=== PATIENT | male | born 1975 | race Caucasian/White ===

== ENCOUNTER 2021-07-13 19:19 | Emergency (ER) | payer BC, SELFPAY ==
--- NOTE | ~2021-07-13 | XR_ITS ---
EXAMINATION: PORTABLE CHEST 1 VIEW CLINICAL INFORMATION: Covid, increasing cough . COMPARISON: 09/02/2017. TECHNIQUE: Portable frontal view of the chest was obtained. FINDINGS: Dense calcified left pleural plaque is again seen with a distribution similar to the prior study. This associated volume loss in the left with blunting of the left costophrenic angle and asymmetric left pleural capping. On these extensive chronic changes I do not appreciate any acute superimposed focal infiltrate, effusion, edema, or pneumothorax. Cardiac and mediastinal silhouettes within normal limits for size. No acute bony abnormality. XR/XR chest 1V IMPRESSION: Extensive chronic appearing changes in the left hemithorax similar to the 2018 study. No acute superimposed process.
[2021-07-13 19:55] VITALS: BP 119/73; PULSE 74; RESP 18; TEMP 36.1; O2SAT 97; BMI 26.5
[2021-07-13 23:44] VITALS: BP 110/77; PULSE 68; RESP 16; TEMP 36.1; O2SAT 100
--- NOTE | 2021-07-14 00:22 | ED_ITS ---
HPI - URI/Sore Throat General Chief Complaint: Upper Respiratory Symptoms Stated Complaint: covid + Time Seen by Provider: 07/14/21 00:01 Source: patient Mode of arrival: ambulatory Limitations: no limitations History of Present Illness HPI Narrative: Patient presents to the emergency department for evaluation of shortness of breath is associated with tightness in the chest. Reports 6 days ago developing upper respiratory symptoms, and had tested positive for COVID-19. Reports that he has had been vaccinated for COVID-19 with Moderna x3. Since earlier this morning he felt his shortness of breath was becoming slightly worse with wheezing, and tightness in the chest. When at rest, or 1 not coughing he denies any pain/tightness to the chest. Denies fevers, chills, nasal congestion, sore throat, neck pain, palpitations, nausea, vomiting, abdominal pain, generalized body aches, generalized weakness. He reports that he has been using his albuterol inhaler which has helped with his symptoms. He states he has history of COPD and was concerned that he may be developing pneumonia. Related Data Home Medications Medication Instructions Recorded Confirmed albuterol sulfate 90 mcg/actuation 1 puff INHALATION QID 04/02/21 04/02/21 aerosol inhaler (ProAir HFA) Previous Rx's Medication Instructions Recorded amoxicillin 875 mg-potassium 1 tab PO BID 7 Days #14 tab 06/11/21 clavulanate 125 mg tablet codeine 6.3 mg-guaifenesin 100 10 ml PO Q4-6H PRN #473 ml 06/11/21 mg/5 mL oral liquid albuterol sulfate 90 mcg/actuation 2 puff INHALATION Q4-6H PRN #6.7 g 07/14/21 aerosol inhaler (ProAir HFA) prednisone 20 mg tablet 40 mg PO DAILY 5 Days #10 tab 07/14/21 Allergies Allergy/AdvReac Type Severity Reaction Status Date / Time No Known Allergies Allergy Verified 06/11/21 10:18 Review of Systems Review of Systems: Constitutional: No fever. No chills. No weakness. No fatigue. ENT/ Mouth: No Ear Pain, positive Nasal Congestion, no sore throat, No Rhinorrhea, No Swallowing Difficulty Skin: No rash or itching. Cardiovascular: Positive chest tightness. No palpitations. Respiratory: Positive shortness of breath. Positive cough. No sputum production. Gastrointestinal: No nausea. No vomiting. No diarrhea. No abdominal pain. Genitourinary: No burning micturition. No urinary frequency. Neurologic: No headache. No dizziness. No syncope. No numbness or tingling in the extremities. Musculoskeletal: No muscle pain. No back pain. No joint pain or stiffness. Yes all other systems are reviewed and are negative PMFSH Past Medical History Attestation statement: The following information was validated with the patient. Source: old records reviewed Social History Social History Advance Directives: No Physical Exam Vital Signs: Vital Signs: Last Vital Signs Temp 97 F 07/13/21 23:44 Pulse 68 07/13/21 23:44 Resp 16 07/13/21 23:44 BP 110/77 07/13/21 23:44 Pulse Ox 100 07/13/21 23:44 BMI result Body Mass Index 26.5 Vital signs have been reviewed as normal and appeared to be correct. Blood pressure normal.? Heart rate normal.? Respiration rate normal. Temperature norm al.? Oxygen saturation normal. Appearance: Alert.?Oriented to person, place and time. No acute distress.?Normal affect. Eyes: Pupils equal, round and reactive to light.? ENT: TM normal bilaterally. Pharynx normal.?? Neck: Normal inspection.? Neck supple.??No cervical adenopathy CVS: Heart sounds normal. Normal heart rate and rhythm.? Pulses normal.?? Respiratory: No respiratory distress.? Lung sounds with inspiratory and expiratory wheezing bilaterally Abdomen: Soft and non-tender. Skin: Skin warm and dry.? Normal skin color.? ? Extremities: No lower extremity edema.? Neuro: Moves all extremities spontaneously. Sensation intact bilaterally. No motor deficits. Ambulates with normal steady gait. Course Course Course Narrative: Patient is a 46-year-old male with reported past medical history of COPD, presenting for evaluation of shortness of breath and chest tightness, in the setting of recent COVID-19 infection per his report. Patient noted to have significant inspiratory and expiratory wheezing on exam, offered patient received nebulizer treatment while in the emergency department he however declines. Discussed recommendation to obtain basic labs to exclude alternative causes for chest tightness such as anemia, ACS, PE, however patient declines having blood work obtained. Reports that this feels typical for him with his COPD which is slightly worse than normal. Chest x-ray reveals no acute consolidation, infiltrate, or pulmonary congestion. Patient with no risk factors for ACS. Chest tightness is reproducible with cough and deep inspiration. Ambulatory O2 trial reveals no hypoxia or tachycardia. He is overall well-appearing, nontoxic, afebrile, no tachycardia or tachypnea/hypoxia. Speaking clear full sentences, ambulatory with steady gait. Discussed conservative treatment including rest, hydration, Tylenol/ibuprofen as needed for fever and body aches, provided with a new prescription for albuterol inhaler, in addition to prednisone to take daily. Discussed opportunities for monoclonal antibody infusion given his reported history of COPD, he however declines. Advised to follow-up with primary care provider as needed, discussed reasons to return back to the emergency department for any new or worsening symptoms or concerns All questions were answered. Patient discharged home in stable condition. MDM - URI/Sore Throat Medical Records Attestation: I reviewed the patient's medical records. Lab Data Attestation: I reviewed the patient's lab results. Imaging Data Chest x-ray: Radiologist's impression: XR/XR chest 1V IMPRESSION: Extensive chronic appearing changes in the left hemithorax similar to the 2018 study. No acute superimposed process. ? Discharge Plan Discharge Clinical Impression: COVID-19 Patient Disposition: Home, Self-Care Instructions: COVID-19 (Coronavirus Disease 2019) (ED) Additional Instructions: You made us aware that you have tested positive for COVID-19, this is likely causing you to have an exacerbation of your COPD as he reported. You have been given a new prescription for your albuterol inhaler, sent to your pharmacy in addition to an oral steroid, prednisone. As we discussed, please return to emergency department with any new symptoms or concerns or worsening shortness of breath, difficulty breathing, wheezing, or few developed chest pain lightheadedness, dizziness, confusion. Please follow-up with your primary care provider within 1 week. Prescriptions: New albuterol sulfate [ProAir HFA] 90 mcg/actuation HFA aerosol inhaler 2 puff inhalation Q4-6H PRN (Reason: shortness of breath or wheezing) Qty: 6.7 0RF prednisone 20 mg tablet 40 mg PO DAILY 5 Days Qty: 10 0RF No Action albuterol sulfate [ProAir HFA] 90 mcg/actuation HFA aerosol inhaler 1 puff inhalation QID 0RF amoxicillin-pot clavulanate 875-125 mg tablet 1 tab PO BID 7 Days Qty: 14 0RF codeine-guaifenesin 6.3-100 mg/5 mL liquid 10 ml PO Q4-6H PRN (Reason: allergy symptoms) Qty: 473 0RF Stand Alone Forms: Work/School Release Interventions: ED Discharge Assessment Last Done: 07/14/21 01:13 Discharge Date/Time: 07/14/21 01:14
== END 2021-07-14 01:14 | disposition home or self-care (01) ==
LOC: HO.ED 07-14 00:50
PROVIDERS: Emergency Provider Internal Medicine; PCP Nurse Practitioner Family
DX: U07.1 COVID-19 (principal); R07.89 Other chest pain; Z79.899 Other long term (current) drug therapy
CPT/HCPCS: 71045; 99283

== ENCOUNTER 2021-12-28 08:32 | Outpatient (REF) | payer BC, SELFPAY ==
[2021-12-28 12:02] LABS: Appearance Urine Clear; Color Urine Dark Yellow; Glucose Urine UA Negative (Negative); Leukocyte Esterase Urine Negative (Negative); Nitrite Urine Negative (Negative); Urine Blood Negative (Negative); Urine Ketones Trace mg/dL (Negative); Urine Protein Negative (Neg-Trace)
[2021-12-28 12:04] LABS: Basophils Absolute Auto 0.1 X10*3/uL (0.0-0.2); Basophils Percent Auto 0.6 % (0-2); Eosinophils Absolute Auto 0.1 X10*3/uL (0.0-0.4); Eosinophils Percent Auto 1.2 % (0-4); Hematocrit 47.2 % (42.0-52.0); Hemoglobin 15.4 g/dl (14.0-18.0); Imm Gran Abs Auto 0.05 X10*3/uL (0.00-0.03); Imm Gran Pct Auto 0.5 % (0.0-0.4); Lymphocytes Absolute Auto 2.4 X10*3/uL (1.2-4.9); Lymphocytes Percent Auto 22.4 % (20-40); MANUAL DIFF FLAG NO; Mean Corpuscular HGB Conc 32.6 g/dl (31.0-36.0); Mean Corpuscular Hemoglobin 30.1 pg (27.0-33.0); Mean Corpuscular Volume 92.4 fL (80.0-98.0); Mean Platelet Volume 11.3 fL (9.4-12.4); Monocytes Absolute Auto 1.1 X10*3/uL (0.1-1.2); Monocytes Percent Auto 10.4 % (2-11); Neutrophils Percent Auto 64.9 % (45-73); Platelet Count 301 X10*3/uL (160-400); Red Blood Count 5.11 X10*6/uL (4.60-5.80); Red Cell Distribution Width 12.2 % (11.0-16.0); White Blood Count 10.9 X10*3/uL (4.8-10.8)
[2021-12-28 12:26] LABS: Alanine Aminotransferase 20 U/L (0-40); Albumin Level 4.5 g/dL (3.5-5.0); Alkaline Phosphatase 92 U/L (39-117); Anion Gap 17 (12-20); Aspartate Amino Transferase 22 U/L (5-37); Bilirubin Total 0.3 mg/dL (0.0-1.0); Blood Urea Nitrogen 12 mg/dL (9-16); Calcium 9.7 mg/dL (8.4-10.2); Carbon Dioxide 26 mmol/L (22-29); Chloride 104 mmol/L (96-108); Cholesterol 195 mg/dL; Estimated Glomerular Filt Rate > 60; Glucose Fasting 88 mg/dL (60-99); HDL Cholesterol 43 mg/dL; LDL Cholesterol Calculated 137 mg/dl; Potassium 4.5 mmol/L (3.3-5.1); Sodium 142 mmol/L (135-145); Total Protein 7.4 g/dL (6.5-8.0); Triglycerides 78 mg/dL
[2021-12-28 12:50] LABS: TSH reflex Free T4 1.22 uIU/mL (0.32-4.0)
== END 2021-12-28 08:33 | disposition home or self-care (01) ==
LOC: HO.HMGCLDS 08:32
PROVIDERS: PCP Nurse Practitioner Family; Visit Provider Nurse Practitioner Family
DX: Z00.00 Encounter for general adult medical examination without abnormal findings (principal)
CPT/HCPCS: 36415; 80053; 80061; 81003; 84443; 85025

== ENCOUNTER 2022-04-19 14:46 | Outpatient (REF) | payer BC, SELFPAY ==
--- NOTE | ~2022-04-19 | XR_ITS ---
EXAMINATION: XR ELBOW, RIGHT CLINICAL INFORMATION: Right elbow pain COMPARISON: None TECHNIQUE: AP, lateral, and oblique views of the right elbow. FINDINGS: The bones and soft tissues are normal. No fracture or joint effusion. Alignment is anatomic. Joint spaces are maintained. XR/XR elbow RT min 3V IMPRESSION: Normal right elbow.
== END 2022-04-19 14:47 | disposition home or self-care (01) ==
LOC: HO.HMGCX 14:46
PROVIDERS: PCP Nurse Practitioner Family; Visit Provider Nurse Practitioner Family
DX: M25.521 Pain in right elbow (principal)
CPT/HCPCS: 73080

== ENCOUNTER 2023-04-27 08:07 | Outpatient (AMB) | payer BC, SELFPAY ==
[2023-04-27 08:09] VITALS: BP 126/78; PULSE 96; TEMP 36.6; O2SAT 96; BMI 28.3
--- NOTE | 2023-04-27 08:09 | MHC.OFFWIV ---
Intake Vital Signs 04/27/23 08:09 Height 5 ft 10 in Weight 197 lb 2 oz BMI 28.3 BP 126/78 Blood Pressure Location Lt brachial Position Sitting Pulse 96 Pulse Source Pulse Oximeter Temp 98 F Temp Source Oral Pulse Oximetry (%) 96 Oxygen Delivery Method Room Air Intake Visit Reasons: EP sinus pain Intake Note: Pt is here today for sinus pain eyes ears. Pt states symptoms been going on for a month Patient Tobacco Use Status: Current someday Tobacco user Allergies No Known Allergies Allergy (Verified 06/27/22 12:34) HPI HPI Comments History of Present Illness Details 47 y/o male patient who presents to walk in clinic with c/o Sinus pressure for over a month. H/o well controlled Asthma on Albuterol inhaler. Denies any recent sick contacts. Denies fevers, chills, nausea or vomiting. 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[place] [id number] Current occupational exposures/hazards: Yes Cognitive needs: No Hearing needs: No Vision needs: No Review of Systems Const All systems reviewed & are unremarkable except as noted in HPI and below Physical Exam Vital Signs: Last Vital Signs Temp 98 F 04/27/23 08:09 Pulse 96 04/27/23 08:09 BP 126/78 04/27/23 08:09 Pulse Ox 96 04/27/23 08:09 Oxygen Delivery Method Room Air 04/27/23 08:09 BMI result Body Mass Index 28.3 Const General: comfortable and no acute distress Nutritional Appearance: well nourished Orientation/consciousness: patient oriented x3 HEENT Head: Yes normocephalic Ears: external ears normal and TM's normal bilaterally General nose exam: Normal nasal mucous membranes and turbinates present Face and sinus: Yes sinuses nontender Throat: Yes posterior oropharynx normal Resp Effort & Inspection: normal respiratory effort, able to speak in complete sentences and no cough Auscultation: clear to auscultation bilaterally, no crackles, no rales, no rhonchi and no wheezes Neuro General: patient oriented x3 Assessment & Plan Assessment & Plan (1) Acute nasopharyngitis (common cold): Code(s): J00 - Acute nasopharyngitis [common cold] Plan: - OTC cold/sinus remedies -Rest and hydrate well - Acetaminophen for pain relief Medications: New azithromycin 500 mg PO DAILY 3 days 3 tabs 0RF J00 - Acute nasopharyngitis [common cold] oxymetazoline 0.05% (Afrin (oxymetazoline)) 2 sprays intranasal Q12H 3 days PRN 15 mL 0RF nasal congestion J00 - Acute nasopharyngitis [common cold] Coding Level of Care Code Est Pt Level 3 (19727) Diagnoses Acute nasopharyngitis (common cold) J00 Time Spent (min) 15
== END 2023-04-27 09:31 | disposition home or self-care (01) ==
PROVIDERS: PCP Nurse Practitioner Family; Visit Provider Nurse Practitioner Family
DX: J00 Acute nasopharyngitis [common cold] (principal)
CPT/HCPCS: 99213

== ENCOUNTER 2023-07-31 09:59 | Outpatient (AMB) | payer BC, SELFPAY ==
[2023-07-31 10:38] VITALS: BP 128/80; PULSE 82; TEMP 36.8; O2SAT 98; BMI 26.0
--- NOTE | 2023-07-31 10:38 | MHC.OFFWIV ---
Intake Vital Signs 07/31/23 10:38 Height 5 ft 10 in Weight 181 lb BMI 26.0 BP 128/80 Blood Pressure Location Rt brachial Position Sitting Pulse 82 Pulse Source Pulse Oximeter Temp 98.3 F Temp Source Oral Pulse Oximetry (%) 98 Oxygen Delivery Method Room Air Intake Visit Reasons: EP sinus/chest congestion night sweats Intake Note: pt is here for sinus and chest congestion with night sweats.tested pos for covid last week Patient Tobacco Use Status: Current someday Tobacco user Allergies No Known Allergies Allergy (Verified 07/31/23 10:42) Do you need a note to return to daycare/school/sports/work: No HPI HPI Comments History of Present Illness Details This is a 48-year-old male with past medical history of asthma presenting for evaluation of a cough and chest congestion. Patient states that he tested positive for COVID on July 26 after feeling significant fatigue with a headache 2 days prior. Patient states that his cough persists however he denies having any fevers, chills, chest pain or overt shortness of breath. 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[place] [address] Current occupational exposures/hazards: Yes Cognitive needs: No Hearing needs: No Vision needs: No Review of Systems Const All systems reviewed & are unremarkable except as noted in HPI and below Reports no additional complaints, Reports body aches, Denies chills, Reports fatigue, Denies fever(s) and Reports headache(s) Eyes Reports no additional complaints ENT Reports no additional complaints and Reports headache(s) Card Reports no additional complaints Resp Reports chest congestion and Reports cough GI Reports no additional complaints Reports no additional complaints Musc Reports no additional complaints Neuro Reports no additional complaints and Reports headache(s) Endo Reports no additional complaints and Reports fatigue Aller/Immun Reports no additional complaints Physical Exam Vital Signs: Last Vital Signs Temp 98.3 F 07/31/23 10:38 Pulse 82 07/31/23 10:38 BP 128/80 07/31/23 10:38 Pulse Ox 98 07/31/23 10:38 Oxygen Delivery Method Room Air 07/31/23 10:38 BMI result Body Mass Index 26.0 Patient is afebrile. Const General: cooperative, comfortable, no acute distress, alert and awake Nutritional Appearance: average body habitus Orientation/consciousness: patient oriented x3 Limitations: no limitations HEENT Head: Yes normal to inspection Ears: hearing grossly normal bilaterally, external ears normal, TM's normal bilaterally and EAC's normal General nose exam: Normal external nose present Face and sinus: Yes normal facial exam and Yes sinuses nontender Mouth: Normal oral and palatal mucosa present and moist mucous membranes Teeth and gingiva: dentition normal Throat: Yes posterior oropharynx normal and Yes postnasal drainage Eyes General: appearance normal, both eyes and all related structures Neck Lymphatic: no lymphadenopathy noted Resp Effort & Inspection: normal respiratory effort, able to speak in complete sentences, no audible wheezes, no cough, no nasal flaring and no respiratory distress Auscultation: clear to auscultation bilaterally Cardio Rate: regular rate Rhythm: regular rhythm Skin General skin exam: no rashes or lesions noted Neuro General: patient oriented x3 Psych Appearance: grossly normal Mental Status: mental status grossly normal Insight: Good insight present (Psych) Judgement: Good judgement present (Psych) Assessment & Plan Assessment & Plan (1) Acute upper respiratory infection: Comment: Given this patient's history of asthma his albuterol inhaler will be refilled however pathology has been explained to the patient as related to COVID vs. asthma Code(s): J06.9 - Acute upper respiratory infection, unspecified Plan: Supportive measures. Tylenol or ibuprofen for any discomfort. Patient to stay well hydrated. Work note provided. Medications: New albuterol sulfate 90 mcg/actuation 2 puffs inhalation Q6H PRN 8.5 grams 0RF shortness of breath or wheezing Coding Level of Care Code New Pt Level 3 (41478) Diagnoses Acute upper respiratory infection J06.9 Time Spent (min) 25
== END 2023-07-31 11:03 | disposition home or self-care (01) ==
PROVIDERS: PCP Nurse Practitioner Family; Visit Provider Physician Assistant
DX: J06.9 Acute upper respiratory infection, unspecified (principal)
CPT/HCPCS: 99203

== ENCOUNTER 2024-12-25 15:09 | Outpatient (AMB) | payer BC, SELFPAY ==
[2024-12-25 15:13] VITALS: BP 110/62; PULSE 94; RESP 14; O2SAT 97; BMI 27.1
--- NOTE | 2024-12-25 15:13 | MHC.PC.OV ---
Vital Signs 12/25/24 15:13 Height 5 ft 10 in Weight 189 lb BMI 27.1 BP 110/62 Blood Pressure Location Lt brachial Position Sitting Respiration 14 Pulse 94 Pulse Source Pulse Oximeter Pulse Oximetry (%) 97 Oxygen Delivery Method Room Air Intake Visit Reasons: PE w/ labs Interface Analyst Required: No Accompanied by: Self / Same As Patient Allergies No Known Allergies Allergy (Verified 12/25/24 15:15) Medication List - Last Reconciled 12/25/24 by XAVIER Pittman albuterol sulfate 90 mcg/actuation (ProAir HFA) 1 puff inhalation QID albuterol sulfate 90 mcg/actuation 2 puffs inhalation Q6H PRN clonazepam 0.5 mg PO BEDTIME PRN oxymetazoline 0.05% (Afrin (oxymetazoline)) 2 sprays intranasal Q12H PRN 3 days paroxetine HCl 60 mg PO BEDTIME Tobacco use date assessed: 12/25/24 Dental Screening Dental Screen Date: 12/25/24 Did you have a dental visit in the last 12 months?: Yes Did you have a dental problem in the last 6 months where you did not have access to dental care?: No Was dental information given to patient?: Patient has dentist HPI PE w/ labs HPI Details History of Present Illness The patient is a 49-year-old male presenting for a physical exam. He denies chest pain, shortness of breath, abdominal pain, hematochezia, constipation, and diarrhea. Approximately three months ago, the patient developed severe left neck pain and was seen at an urgent care, where he was treated for a muscle strain. He reports the pain is improving, encouraged the use of heat and stretching, and he denies any radicular symptoms into the bilateral upper extremities. Past history includes tobacco use. He sees a therapist regularly and denies suicidal or homicidal ideation. Health Maintenance A referral will be placed for a colonoscopy as the patient is due for screening. A referral for a low-dose CT scan will also be made for lung cancer screening due to his history of smoking. Vaccinations were discussed, and the patient was informed he can get them at his pharmacy. Social History - Substance Use: The patient has a history of smoking. - Mental Health: He sees a therapist regularly. Review of Systems - Cardiovascular: Denies chest pain. - Respiratory: Denies shortness of breath. - Gastrointestinal: Denies abdominal pain, hematochezia, constipation, and diarrhea. - Musculoskeletal: Reports left neck pain that is improving. - Neurological: Denies radicular symptoms. - Psychiatric: Denies suicidal or homicidal ideation. Physical Exam General: Cooperative, healthy appearing, comfortable, no acute distress and well developed Orientation: Patient oriented x3 Limitations: No limitations Head: Normal to inspection Ears: Hearing grossly normal bilaterally Nose: Normal external nose present Face and sinus: Normal facial exam Eyes: Appearance normal, both eyes and all related structures Neck: Normal visual inspection and Yes full ROM, neg spurlings Respiratory: Normal respiratory effort and able to speak in complete sentences. Clear to auscultation bilaterally Cardiovascular: Regular rate and rhythm. Normal S1 and S2 GI: Normal to inspection. Soft to palpation and nontender : testicles without masses/lesions and no hernias appreciated Skin: No rashes or lesions noted Neuro: Patient oriented x3 Extremities: Normal to inspection, no radicular symptoms down bilaterally upper extremities Results Plan 1. Left Neck Pain The patient reports his left neck pain, which was diagnosed as a muscle strain three months ago, is improving. He will continue with heat application and stretching. He was advised to follow up if his symptoms worsen. Discussion Notes I reviewed the patient's preventative health needs. Due to his history of smoking, I informed him he qualifies for a low-dose CT scan for lung cancer screening and that I will place a referral. I also noted he is due for a colonoscopy and will refer him for that as well. We went over the vaccinations he is due for, and I advised him he can receive them at his pharmacy. Regarding his resolving left neck pain, I recommended he continue with heat and stretching and to let me know if it worsens. Patient Instructions - Continue to use heat and stretching for your left neck pain. - Please let us know if your neck pain gets any worse. - We will put in a referral for you to get a low-dose CT scan of your chest to screen for lung cancer. - We will also put in a referral for you to get a colonoscopy for colon cancer screening. - You can get the vaccinations you are due for at your local pharmacy. 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 1. Little interest or pleasure in doing things: several days 2. Feeling down, depressed, or hopeless: several days 3. Trouble falling or staying asleep, or sleeping too much: several days 4. Feeling tired or having little energy: several days 5. Poor appetite or overeating: not at all 6. Feeling bad about yourself - or that you are a failure or have let yourself or your family down: several days 7. Trouble concentrating on things, such as reading the newspaper or watching television: nearly every day 8. Moving or speaking so slowly that other people could have noticed. Or the opposite - being so fidgety or restless that you have been moving around a lot more than usual: several days 9. Thoughts that you would be better off or of hurting yourself in some way: not at all Total score: 9 Depression Screening Interpretation: Positive (denies any SI or hi, has a therapist) Depression Screening Follow-up: Existing condition and In treatment Depression Screening Done: Yes 86008 - PHQ-9 Billing: Yes Source: Developed by Drs. Alejandro Murcia, Hali Fishman, Pollo Healy and colleagues, with an educational nandini from [employer]. Thrive Questionnaire Date Thrive assessed: 12/28/21 I am a: Patient What is your living situation today?: I have a steady place to live Within the past 12 months, did the food you bought not last and you didn't have the money to get more?: Never true Within the past 12 months, did you worry whether your food would run out before you got money to buy more?: Never true Do you have trouble paying for medicines?: No Do you have trouble getting transportation to medical appointments?: No Do you have trouble paying your heating and electricity bill?: No Do you have trouble taking care of your child, family member or friend?: No Do you have trouble with day-to-day activities such as bathing, preparing meals, shopping, managing finances, etc.?: No Are you currently unemployed and looking for a job?: No Are you interested in more education?: No Please select the resources that you would like help with: None Currently or been in a relationship where the following occur: No concerns reported THRIVE Score: 0 AUDIT C Alcohol Use Questionnaire (AUDIT-C) 1. How often do you have a drink containing alcohol?: Never Total Score: 0 ORALIA-7 AMB Questionnaire ORALIA-7 Date ORALIA - 7 assessed: 12/25/24 Feeling nervous, anxious, or on edge: 1 = Several days Not being able to stop or control worryin = Several days Worrying too much about different things: 1 = Several days Trouble relaxin = Several days Being so restless that it is hard to sit still: 1 = Several days Becoming easily annoyed or irritable: 1 = Several days Feeling afraid as if something awful might happen: 1 = Several days Total ORALIA-7 score (0-4 normal; 5-9 mild; 10-14 moderate; 15-21 severe): 7 Source: Developed by Drs. Alejandro Murcia, Hali Fishman, Pollo Healy and colleagues, with an educational nandini from [employer]. ORALIA-7 Assessment Billing ORALIA-7 Assessment Tool: ORALIA-7 Assessment 94379 Physical exam (Primary Care) Vital Signs: Last Vital Signs Pulse 94 12/25/24 15:13 Resp 14 12/25/24 15:13 BP 110/62 12/25/24 15:13 Pulse Ox 97 12/25/24 15:13 Oxygen Delivery Method Room Air 12/25/24 15:13 BMI result Body Mass Index 27.1 Tobacco/Smoking Status: Tobacco use Status Tobacco use date assessed 12/25/24 12/25/24 15:17 Patient Tobacco Use Status Former Tobacco user 12/25/24 15:17 Tobacco use type Cigarette 12/25/24 15:17 e-Cigarette/Vaping Use Never Used 12/25/24 15:17 PHQ-9: PHQ-9 Score PHQ-9: Total score 9 12/25/24 15:17 Depression Screening Interpretation: Positive (denies any SI or hi, has a therapist) Depression Screening Follow-up: Existing condition and In treatment Thrive Assessment: Date of Thrive Assessment Date Thrive assessed 12/28/21 12/25/24 15:17 Currently or been in a relationship where the following occur: No concerns reported Coding Level of Care Code Est Pt Prev Care 40-64y(78473) Diagnoses Physical exam Z00. Screening for prostate cancer Z12.5 Screen for colon cancer Z12.11 Smoker F17.200 Additional Codes ORALIA-7 Assessment Billing - ORALIA-7 Assessment Tool: ORALIA-7 Assessment 55867 ([id number]) PHQ-9 - 31752 - PHQ-9 Billing: Yes ([id number]) Assessment & Plan Assessment & Plan (1) Physical exam: Code(s): Z00.00 - Encounter for general adult medical examination without abnormal findings Category: Medical (2) Screening for prostate cancer: Code(s): Z12.5 - Encounter for screening for malignant neoplasm of prostate Category: Medical (3) Screen for colon cancer: Code(s): Z12.11 - Encounter for screening for malignant neoplasm of colon Category: Medical (4) Smoker: Code(s): F17.200 - Nicotine dependence, unspecified, uncomplicated Category: Social Hx Plan . Orders: Orders Comprehensive [place]. Panel Fast Today Z00.00 - Encounter for general adult medical examination without abnormal findings Lipid Panel Today Z00.00 - Encounter for general adult medical examination without abnormal findings Complete Blood Count Auto Diff Today Z00.00 - Encounter for general adult medical examination without abnormal findings TSH reflex Free T4 Today Z00.00 - Encounter for general adult medical examination without abnormal findings UA CC w/rflx Micro + Cult Today Z00.00 - Encounter for general adult medical examination without abnormal findings Prostate Specific Antigen Scr Today Z12.5 - Encounter for screening for malignant neoplasm of prostate Referrals Gastroenterology Referral Z12.11 - Encounter for screening for malignant neoplasm of colon Lung Cancer Screening Referral F17.200 - Nicotine dependence, unspecified, uncomplicated
--- OUTSIDE RECORDS SUMMARY | 2024-12-25 17:56 | XMS_ITS | Clinical Summary ---
Author Organization [facility] Address [address] [place] [phone] Phone Care Team Providers Care Optical Store Manager Name Role Phone Epi Reich ASSISTANT SOFTBALL COACH Primary Care Provider + Allergies Active Allergy Reactions Criticality Noted Date Comments Levofloxacin Low 07/17/2012 Redness in the face - anxiety-like symptoms Medications No known medications Active Problems No known active problems Social History Tobacco Use Types Packs/Day Years Used Date Smoking Tobacco: Never Smokeless Tobacco: Never Alcohol Use Standard Drinks/Week Comments Not Currently 0 (1 standard drink = 0.6 oz pur e alcohol) Education Answer Date Recorded Are you interested in more education? Not on dat e 06/23/2022 Are you concerned about learning? Not on file 06/23/2022 No 06/23/2022 No 06/23/2022 Digital Access Answer Date Recorded No 07/21/2022 No 07/21/2022 Reliable internet access at home? Not on file 07/21/2022 Device with a working camera? Not on file Sex and Gender Information Value Date Recorded Sex Assigned at Not on file Legal Sex Male 9:29 PM EDT Gender Identity Not on file Sexual Orientation Not on file Last Filed Vital Signs Vital Sign Reading Time Taken Comments Blood Pressure 120/78 09/09/2021 9:12 AM EDT Pulse 75 09/09/2021 9:12 AM EDT Temperature 36.4 C (97.5 F) 09/09/2021 9:12 AM EDT Respiratory Rate 18 09/09/2021 9:12 AM EDT Oxygen Saturation 99% 09/09/2021 9:12 AM EDT Inhaled Oxygen Concentration - - Weight 81.6 kg (180 lb) 09/09/2021 9:12 AM EDT Height 177.8 cm (5' 10 ) 09/09/2021 9:12 AM EDT Body Mass Index 25.83 09/09/2021 9:12 AM EDT Plan of Treatment Health Maintenance Due Date Last Done Comments LIPID PANEL 1974 DEPRESSION SCREENING 1986 HEPATITIS C SCREENING 1992 HIV ONE-TIME SCREENING (18-6 5 YEARS) 1992 COLOGUARD 05/31/2019 COLONOSCOPY 05/31/2019 COLORECTAL CANCER SCREENING 05/31/2019 FIT TEST 05/31/2019 FOBT 05/31/2019 SIGMOIDOSCOPY 05/31/2019 VIRTUAL COLONOSCOPY 05/31/2019 Adult Td,Tdap Booster 01/25/2021 01/25/2011 PNEUMOCOCCAL VACCINES (50+ years) (2 of 2 - PCV) 2024 12/13/2011 ZOSTER VACCINES (1 of 2) 2024 INFLUENZA VACCINE (#1) 2024 , 01/10/2020, 01/05/2010 COVID-19 VACCINE (4 - 2024-2 6 season) 2024 12/24/2020, 04/23/2020, 03/26/2020 RSV VACCINE (1 - 1-dose 75+ series) 2049 SMOKING STATUS SCREENING (On ce After 26 Yrs) Completed 09/09/2021 HEPATITIS A VACCINES Aged Out No long er eligible based on patient's age to complete this topic HIB VACCINES Aged Out No longer eligi ble based on patient's age to complete this topic MENINGOCOCCAL VACCINES (ACWY) Aged Out No longer eligible based on patient's age to complete this topic MENINGOCOCCAL VACCINES (B) Aged Out N o longer eligible based on patient's age to complete this topic Medical Devices Not on file Insurance [employer] PPO EPO PPO E[place] [address] [place] [address] [place] [address] [place] [address] [place] [address] [place] [address] [place] [address] [place] [address] PPO EPO [employer]PO [employer] Care Teams Optical Store Manager Relationship Specialty Start Date End Date Epi Reich NP [facility] [place] [id number] PCP - General Family Medicine 07/07/21 Additional Source Comments The information contained in this document represents components of the legal health record. It is not the complete legal health record.[facility]
--- OUTSIDE RECORDS SUMMARY | 2024-12-25 17:56 | XMS_ITS | Data Portability ---
Author Organization [facility], [address] Address [address] [place] [address] Care Team Providers Care Bias Machine Operator Helper Name Role Phone [facility] Primary Care Provider MARQUES ALDANA Software Database Architect [phone] Assessment No assessment recorded. Plan of Treatment Reminders Order Date Submit Date Provider Last Modified By Organization Details Last Modified Time Details Appointments None recorded. Lab None recorded. Referral None recorded. Procedures None recorded. Surgeries None recorded. Imaging None recorded. Medication Orders amoxicillin 875 mg-potassiu m clavulanate 125 mg tablet 2022 023 [facility]/Pharmacy #[id number], [address] [place], [address], 15:49:21 Augmentin 875 mg-125 mg tablet 2022 023 [facility]/Pharmacy #[id number], [address] [place], [address], 15:27:08 Patient TargetsNo targets recorded. Patient Instructions Encounter Date Encounter Id Patient Instructions Last Modified By Organization Details Last Modified Time 05/21/2022 [id number] Acute Sinusitis: Care Instructions [email or web address] Not available 05/21/2022 09:36:56 09/14/2022 [id number] Acute Sinusitis: Care Instructions [email or web address] Not available 09/14/2022 15:49:19 Reason for Referral None Reported. Problems No Known Problems Medical Equipment None Reported. Allergies No known drug allergies Medications Name Sig Start Date Stop Date Status Note LastModified by Organization Details LastModified Time cyclobenzap rine 10 mg tablet TAKE 1 TABLET (10 MG TOTAL) BY MOUTH 3 (THREE) TIMES A DAY NEEDED (MUSCLE). 05/21 completed Not Available Not Available Not Available cefpodoxime 200 mg tablet TAKE 1 TABLET BY MOUTH EVERY 12 HOURS FOR 1 WEEK, WITH FOOD/MEAL 05/21 completed Not Available Not Available Not Available clarithromy andrei 500 mg tablet TAKE 1 TABLET BY MOUTH EVERY 12 HOURS FOR 10 DAYS active Not Available Not Available No t Available prednisone 20 mg tablet TAKE 2 TABLETS BY MOUTH DAILY FOR 5 DAYS 05/21 completed Not Available Not Available Not Available clonazepam 0.5 mg tablet TAKE 1 TABLET (0.5 MG) BY MOUTH DAILY AT BEDTIME NEEDED ONLY active Not Available Not Available No t Available benzonatate 100 mg capsule TAKE 2 CAPSULES BY MOUTH 3 TIMES A DAY FOR 5 DAYS active Not Available Not Available No t Available paroxetine 30 mg tablet TAKE 2 TABLETS (60 MG) BY MOUTH DAILY AT BEDTIME active Not Available Not Available No t Available diclofenac sodium 50 mg tablet,mikey yed release TAKE 1 TABLET BY MOUTH TWICE A DAY 05/21 completed Not Available Not Available Not Available methylpredn isolone 4 mg tablets in a dose pack TAKE DIRECTED IN PACKAGE active Not Available Not Available No t Available albuterol sulfate HFA 90 mcg/actuati on aerosol inhaler INHALE 2 PUFFS BY MOUTH EVERY 4 TO 6 HOURS NEEDED FOR SHORTNESS OF BREATH OR WHEEZING 05/21 completed Not Available Not Available Not Available amoxicillin 875 mg-potassiu m clavulanate 125 mg tablet Take 1 tablet every 12 hours by oral route for 7 days. 2022 active Not Available Not Available Not Avai lable Paxlovid 300 mg (150 mg x 2)-100 mg tablets in a dose pack TAKE 3 TABLETS BY MOUTH TWICE A DAY DIRECTED FOR 5 DAYS 05/21 completed Not Available Not Available Not Available Vitals Date Recorded Body height Body mass index (BMI) Body weight Pain severity - 0-10 verbal numeric rating [Score] - Reported Respiratory rate Oxygen saturation Oxygen saturation in Arterial blood by Pulse oximetry Heart rate Body temperature Systolic And Diastolic Provider Name and Address Organization Details Last Updated DateTime 3 177.8 cm 27.3 kg/m2 29086.5 5 g 4 16 /min 98 % 98 % 79 /min 97.9 [degF] 113/78 mm[Hg] BLANKA VAZQUEZ PA - [facility] 3 08:57:15 Date Recorded Body height Body mass index (BMI) Body weight Pain severity - 0-10 verbal numeric rating [Score] - Reported Oxygen saturation Oxygen saturation in Arterial blood by Pulse oximetry Heart rate Respiratory rate Body temperature Systolic And Diastolic Provider Name and Address Organization Details Last Updated DateTime 3 177.8 cm 27.3 kg/m2 35308.5 5 g 4 97 % 97 % 76 /min 20 /min 98.2 [degF] 123/73 mm[Hg] Marilu Walters [facility] 3 15:27:43 Social History Question Answer Notes LastModified by [employer] Details LastModified Time Tobacco Smoking Status Current Some Day Smoker BLANKA LARIOSIVAN castorena PA - [facility] 05/21/2022 08:56:05 Have You Had Direct Contact, Or Contact During Intimacy, With Monkeypox Rash, Scabs, Or Body Fluids From A Person With Monkeypox? No [email or web address] Information not available 09/14/2022 Have You Recently Traveled Abroad? No Information not available 05/21/2022 Sex: Unknown Functional Status Question Answer Note LastModified by [employer] Details LastModified Time Do you use any illicit or recreational drugs? No Information not available 05/21/2022 Do you or have you ever used any other forms of tobacco or nicotine? No Information not available 05/21/2022 What is your level of alcohol consumption? None Information not available 05/21/2022 Are you currently employed? Yes Information not available 05/21/2022 Mental Status None recorded. Family History Relationship Description Onset Age of this Age Resolved Age Notes LastModified by Organization Details LastModified Time Father No current problems or disability Not available 05/21 08:55:54 Mother No current problems or disability Not available 05/21 08:55:54 Medical History No medical history recorded. Immunizations Vaccine Type Date Status Note Provider Nam e and Address Organization Details Recorded Time COVID-19, mRNA, LNP-S, PF, 100 mcg/0.5mL dose or 50 mcg/0.25mL dose 1 completed BLANKA TAYLOR null, PA - [facility] 05/21/2022 08:55:09 COVID-19, mRNA, LNP-S, PF, 100 mcg/0.5mL dose or 50 mcg/0.25mL dose 1 completed BLANKA TAYLOR null, PA - [facility] 05/21/2022 08:55:09 COVID-19, mRNA, LNP-S, PF, 100 mcg/0.5mL dose or 50 mcg/0.25mL dose 1 completed BLANKA TAYLOR null, PA - [facility] 05/21/2022 08:55:09 COVID-19, mRNA, LNP-S, bivalent, PF, 50 mcg/0.5 mL or 25mcg/0.25 mL dose 2 completed BLANKA TAYLOR null, PA - [facility] 05/21/2022 08:55:09 pneumococcal polysaccharide PPV23 2 completed BLANKA TAYLOR null, PA - [facility] 05/21/2022 08:55:09 Tdap 1 completed BLANKA TAYLOR null, PA - [facility] 05/21/2022 08:55:09 Influenza, split virus, trivalent, preservative 0 completed BLANKA TAYLOR null, PA - [facility] 05/21/2022 08:55:09 Influenza, split virus, quadrivalent, PF 2 completed BLANKA TAYLOR null, PA - [facility] 05/21/2022 08:55:09 Influenza, split virus, quadrivalent, PF 0 completed BLANKA TAYLOR null, PA - [facility] 05/21/2022 08:55:09 Influenza, split virus, quadrivalent, PF 1 completed BLANKA TAYLOR null, PA - [facility] 05/21/2022 08:55:09 Past Encounters Encounter ID Performer Location Encounter Start Date Encounter Closed Date Diagnosis/Indication Diagnosis SNOMED-CT Code Diagnosis ICD10 Code Diagnosis IMO Codes Diagnosis Note [id number] [address] [place] [address] 09/25/2018 11:00:07 09/25/2018 12:02:14 [id number] [address] [place] [address] 11/12/2019 08:05:06 11/12/2019 09:04:13 [id number] [address] [place] [address] 02/06/2020 09:02:45 02/06/2020 12:24:39 [id number] [address] [place] [address] 09/26/2019 12:43:14 09/26/2019 13:44:40 [id number] [address] [place] [address] 10/05/2020 12:32:21 10/05/2020 15:33:59 [id number] [address] [place] [address] 09/26/2020 14:07:47 09/26/2020 16:10:20 [id number] [address] [place] [address] 04/21/2015 15:02:07 04/21/2015 15:39:34 [id number] [address] [place] [address] 10/20/2014 16:48:13 10/20/2014 18:14:11 [id number] [address] [place] [address] 01/03/2020 08:39:10 01/03/2020 10:02:30 [id number] [address] [place] [address] 12/19/2018 15:36:06 12/19/2018 16:00:35 [id number] Deepak Matute DO [address] [place] [address] 05/21/2022 08:19:21 05/21/2022 09:53:45 Acute sinusitis [id number] J01.90 Given Hx and Sx and PE findings will Rx Antibiotic s and c/w his home nasal spray Take antibiotic with food. Eat a yogurt daily or take a probiotic while taking the antibiotic . NKA Recommend humidified airrest, fluidstyle nol/ibu prn Patient advised to follow up as needed for worsening symptoms or no improvemen t. Discussed concerning red flags with patient and reasons to follow up in the Emergency Department urgently. [id number] Rylie Avendano MD [address] [facility] [address] [place] [address] 09/14/2022 15:16:33 09/14/2022 15:58:33 Acute sinusitis 51486324 J01.90 - Use the medication s prescribed .- Decongesta nts if tolerated. - Recommend recheck if fever develops or no improvemen t in 5-7 days.- Use saline nasal spray or neti-pot flushes once to twice a day to loosen mucus in sinuses.-. Use a cool mist humidifier in the room that you sleep to add moisture to the air, which should soothe the airways and help loosen any mucus that may be present.-C all 911 or proceed to nearest Emergency Department if you develop shortness of breath, chest pain, severe headache or other symptoms that concern you. Health Concerns Section Related Observation LastModified by Organization Detai ls LastModified Time None Recorded Concern Status LastModified by Organization Details LastModified Time None Recorded Advance Directives Directive None Recorded Payers Insurance Date Sequence Insurance Name Policy Number Policy Denis Covered Member ID Denis Member ID Guarantor Name 09/14/2022 1 [place] [id number] Shoaib Awadau [id number] Shoaib Awadau 01/15/2022 LIBLANA Awadau Shoaib Awadau Notes Date Note Type Note Provider Name and Address Organization Details Recorded Time 05/21/2022 text/html Sinus Complaints UCReported by [id number] yo malec/o 3 weeks sinus congestion, pain and pressureuses flonasetried tylenol sinus w/o relief+ night sweats, subjective fever+ mild BATEMAN No chillsNo coughNo difficulty breathing or respiratory distressNo CPNo ear painNo sore throatNo Abdominal painNo nauseaNo vomitingNp diarrheaNo myalgiaNo fatigueNo rashNo dizzinessNo recent travelNo known sick contactsROS as noted in the HPI Deepak Matute DO [address] [place], [address], PA - [facility] 05/21/2022 09:38:00 09/14/2022 text/html Sinus Complaints UCReported by PatientHPIFor location, patient reportssinus pressurebut reportsleft sideandright side. For associated symptoms, patient reportsnasal discharge from both nostrils,sore throat,post nasal drip, andnasal passage blockage bilaterallybut reportsno fever,no difficulty breathing,no nausea or vomiting,no ear fullness,no cough, andno dizziness. For quality, patient reportsworsening. For onset/timing, patient reportsinitially started 2weeks ago. For duration, patient reportslong standing. For severity, patient reportsmoderate. For context, patient reportsno recent upper respiratory infection,no recent sick contacts, andnot worse with seasonal allergen exposure. For prior treatment, patient reportsnasal saline rinseandnasal steroids:___. Rylie Avendano MD [address] [place], [address], [place] - [facility] 09/14/2022 15:59:53
== END 2024-12-25 16:01 | disposition home or self-care (01) ==
LOC: HO.HMCC 15:10
PROVIDERS: PCP Nurse Practitioner Family; Visit Provider Nurse Practitioner Family
DX: Z00.00 Encounter for general adult medical examination without abnormal findings (principal); Z12.5 Encounter for screening for malignant neoplasm of prostate; Z12.11 Encounter for screening for malignant neoplasm of colon; F17.200 Nicotine dependence, unspecified, uncomplicated

== ENCOUNTER → 2024-12-25 15:09 | Outpatient (BNVA) | payer BC, SELFPAY | PROVIDERS: PCP Nurse Practitioner Family; Visit Provider Nurse Practitioner Family | DX: Z12.11 Encounter for screening for malignant neoplasm of colon (principal); Z00.00 Encounter for general adult medical examination without abnormal findings; Z12.5 Encounter for screening for malignant neoplasm of prostate; F17.210 Nicotine dependence, cigarettes, uncomplicated | CPT/HCPCS: 96127 ==

== ENCOUNTER 2025-01-06 08:05 | Outpatient (REF) | payer BC, SELFPAY ==
--- OUTSIDE RECORDS SUMMARY | 2025-01-06 08:07 | XMS_ITS | Data Portability ---
Author Organization [facility], [address] Address [address] [place] [address] Care Team Providers Care Mortgage Protection Specialist Name Role Phone [facility] Primary Care Provider MARQUES ALDANA Ground Operations Supervisor Assessment No assessment recorded. Plan of Treatment Reminders Order Date Submit Date Provider Last Modified By Organization Details Last Modified Time Details Appointments None recorded. Lab None recorded. Referral None recorded. Procedures None recorded. Surgeries None recorded. Imaging None recorded. Medication Orders amoxicillin 875 mg-potassiu m clavulanate 125 mg tablet 2022 023 [facility]/Pharmacy #[id number], [address] [place], [address], 15:49:21 Augmentin 875 mg-125 mg tablet 2022 023 [facility]/Pharmacy #[id number], [address] [place], [address], 15:27:08 Patient TargetsNo targets recorded. Patient Instructions Encounter Date Encounter Id Patient Instructions Last Modified By Organization Details Last Modified Time 05/21/2022 [id number] Acute Sinusitis: Care Instructions [email or web address] Not available 05/21/2022 09:36:56 09/14/2022 [id number] Acute Sinusitis: Care Instructions [email or web address] Not available [...] Updated DateTime 3 177.8 cm 27.3 kg/m2 46206.5 5 g 4 16 /min 98 % 98 % 79 /min 97.9 [degF] 113/78 mm[Hg] BLANKA VAZQUEZ PA - [facility] 3 08:57:15 Date Recorded Body height Body mass index (BMI) Body weight Pain severity - 0-10 verbal numeric rating [Score] - Reported Oxygen saturation Oxygen saturation in Arterial blood by Pulse oximetry Heart rate Respiratory rate Body temperature Systolic And Diastolic Provider Name and Address Organization Details Last Updated DateTime 3 177.8 cm 27.3 kg/m2 68677.5 5 g 4 97 % 97 % 76 /min 20 /min 98.2 [degF] 123/73 mm[Hg] Marilu Walters [employer] [facility] 3 15:27:43 Social History Question Answer Notes LastModified by [employer] Details LastModified Time Tobacco Smoking Status Current [...] Functional Status Question Answer Note LastModified by [employer] Details LastModified Time Do you use any [...] ICD10 Code Diagnosis IMO Codes Diagnosis Note [id number] [address] [place] [address] 09/25/2018 11:00:07 09/25/2018 12:02:14 [id number] [address] [place] [address] 11/12/2019 08:05:06 11/12/2019 09:04:13 [id number] [address] [place] [address] 02/06/2020 09:02:45 02/06/2020 12:24:39 [id number] [address] [place] [address] 09/26/2019 12:43:14 09/26/2019 13:44:40 [id number] [address] [place] [address] 10/05/2020 12:32:21 10/05/2020 15:33:59 [id number] [address] [place] [address] 09/26/2020 14:07:47 09/26/2020 16:10:20 [id number] [address] [place] [address] 04/21/2015 15:02:07 04/21/2015 15:39:34 [id number] [address] [place] [address] 10/20/2014 16:48:13 10/20/2014 18:14:11 [id number] [address] [place] [address] 01/03/2020 08:39:10 01/03/2020 10:02:30 [id number] [address]Jay[address] [place] [address] 12/19/2018 15:36:06 12/19/2018 16:00:35 [id number] Deepak Matute DO [address] [place] [address] 05/21/2022 08:19:21 05/21/2022 09:53:45 Acute sinusitis [id number] J01.90 Given Hx and Sx and PE [...] follow up in the Emergency Department urgently. [id number] Rylie Avendano MD [address] [facility] [address] [place] [address] 09/14/2022 15:16:33 09/14/2022 15:58:33 Acute sinusitis [id number] J01.90 - Use the medication s prescribed [...] ID Guarantor Name 09/14/2022 1 [place] [id number] Shoaib Awadau [id number] Shoaib Awadau 01/15/2022 LIBLANA Awadau Shoaib Awadau Notes Date Note Type Note Provider Name and Address Organization Details Recorded Time 05/21/2022 text/html Sinus Complaints UCReported by [id number] yo malec/o 3 weeks sinus congestion, pain and pressureuses flonasetried tylenol sinus w/o relief+ night sweats, subjective fever+ mild BATEMAN No chillsNo coughNo difficulty breathing or respiratory distressNo CPNo ear painNo sore throatNo Abdominal painNo nauseaNo vomitingNp diarrheaNo myalgiaNo fatigueNo rashNo dizzinessNo recent travelNo known sick contactsROS as noted in the HPI Deepak Matute DO [address] [place], [address], [place] - [facility] 05/21/2022 09:38:00 09/14/2022 [...] Rylie Avendano MD [address] [place], [address], [place] - [facility] 09/14/2022 15:59:53
--- OUTSIDE RECORDS SUMMARY | 2025-01-06 08:07 | XMS_ITS | Clinical Summary ---
Author Organization [facility] Address [address] [place] [address] Phone Care Team Providers Care Specialty Food Products Supervisor Name Role Phone Epi Reich CRIMINAL DEFENSE LAWYER Primary Care Provider + Allergies Active Allergy [...] topic Medical Devices Not on file Insurance [facility] PPO EPO PPO EPO [place] [address] [place] [address] [place] [address] [place] [address] [address] [place] [address] [place] [address] [place] [address] PPO EPO [facility] PPO EPO [employer] Care Teams Specialty Food Products Supervisor Relationship Specialty Start Date End Date Epi Reich NP [facility] [place] [address] PCP - General Family Medicine 07/07/21 Additional Source Comments The information contained in this document represents components of the legal health record. It is not the complete legal health record.[facility]
[2025-01-06 10:29] LABS: MANUAL DIFF FLAG NO
[2025-01-06 10:32] LABS: Appearance Urine Clear; Glucose Urine UA Negative (Negative); PH 6.5 (5.0-9.0); Specific Gravity - Urine 1.015 (1.005-1.025)
[2025-01-06 10:43] LABS: Hematocrit 48.3 % (42.0-52.0); Hemoglobin 15.6 g/dl (14.0-18.0); Imm Gran Abs Auto 0.05 X10*3/uL (0.00-0.03); Imm Gran Pct Auto 0.4 % (0.0-0.4); Lymphocytes Absolute Auto 3.1 X10*3/uL (1.2-4.9); Mean Corpuscular HGB Conc 32.3 g/dl (31.0-36.0); Mean Corpuscular Hemoglobin 30.1 pg (27.0-33.0); Mean Corpuscular Volume 93.1 fL (80.0-98.0); NRBC Abs Auto 0.000 X10*3/uL (0.0-0.012); NRBC Pct Auto 0.0 /100WBC (0.0-0.2); Platelet Count 291 X10*3/uL (160-400); Red Blood Count 5.19 X10*6/uL (4.60-5.80); White Blood Count 11.7 X10*3/uL (4.8-10.8)
[2025-01-06 10:48] LABS: Alanine Aminotransferase 25 U/L (0-40); Albumin Level 4.7 g/dL (3.5-5.0); Alkaline Phosphatase 95 U/L (39-117); Anion Gap 12 (12-20); Aspartate Amino Transferase 29 U/L (5-37); Blood Urea Nitrogen 15 mg/dL (9-16); Calcium 9.9 mg/dL (8.4-10.2); Carbon Dioxide 27 mmol/L (22-29); Chloride 105 mmol/L (96-108); Cholesterol 193 mg/dL (<200); Estimated Glomerular Filt Rate > 60; HDL Cholesterol 43 mg/dL (>40); Potassium 4.3 mmol/L (3.3-5.1); Sodium 140 mmol/L (135-145); Total Protein 7.7 g/dL (6.5-8.0); Triglycerides 74 mg/dL (<150)
== END 2025-01-06 08:06 | disposition home or self-care (01) ==
LOC: HO.HMGCLDS 08:05
PROVIDERS: PCP Nurse Practitioner Family; Visit Provider Nurse Practitioner Family
DX: Z00.00 Encounter for general adult medical examination without abnormal findings (principal); Z12.5 Encounter for screening for malignant neoplasm of prostate; Z13.29 Encounter for screening for other suspected endocrine disorder; Z13.0 Encounter for screening for diseases of the blood and blood-forming organs and certain disorders involving the immune mechanism; Z13.6 Encounter for screening for cardiovascular disorders
CPT/HCPCS: 36415; 80053; 80061; 81003; 84153; 84443; 85025

== ENCOUNTER 2025-01-07 15:29 | Outpatient (REF) | payer BC, SELFPAY ==
--- NOTE | ~2025-01-07 | XR_ITS ---
EXAMINATION: XR CHEST CLINICAL INFORMATION: F17.200 - Nicotine dependence, unspecified, uncomplicated COMPARISON: Previous chest x-rays most recent June [address] August 2017 TECHNIQUE: 2 views of the chest were obtained. FINDINGS: There is extensive left pleural calcification and pleural thickening similar to previous exams. There is no right pleural effusion. There is no pneumothorax. There is increased attenuation in the mid left lung similar to previous exams. When compare with prior CT this is is probably related to pleural thickening and calcification as opposed to parenchymal changes. No definite acute pulmonary findings. There is volume loss left hemithorax unchanged. The right lung is clear. The cardiac and mediastinal contours are stable. Degenerative changes of the spine. XR/XR chest 2V IMPRESSION: Stable chronic changes of the left hemithorax with extensive pleural thickening and calcification similar to old exams. No evidence for acute disease in the chest. Electronically signed by: Galilea Santa MD 01/07/2025 04:44 PM [facility]
--- OUTSIDE RECORDS SUMMARY | 2025-01-07 18:38 | XMS_ITS | Clinical Summary ---
Author Organization [facility] Address [address] [place] [address] Phone Care Team Providers Care Records Custodian Name Role Phone Epi Reich PETROLEUM REFINERY LABORER Primary Care Provider + Allergies Active Allergy [...] on patient's age to complete this topic IPV VACCINES Aged Out No longer eligi ble based on patient's age to complete this topic MENINGOCOCCAL VACCINES (ACWY) Aged Out No longer eligible based on patient's age to complete this topic MENINGOCOCCAL VACCINES (B) Aged Out N o longer eligible based on patient's age to complete this topic Medical Devices Not on file Insurance [facility] PPO EPO PPO EPO [place] [address] [place] [address] PPO EPO PPO E[place] [address] [place] [address] [address] [place] [address] PPO EPO [employer] Care Teams Records Custodian Relationship Specialty Start Date End Date Epi Reich NP [facility] [place] [address] PCP - General Family Medicine 07/07/21 Additional Source Comments The information contained in this document represents components of the legal health record. It is not the complete legal health record.[facility]
== END 2025-01-07 15:30 | disposition home or self-care (01) ==
LOC: HO.HMGCX 15:29
PROVIDERS: PCP Nurse Practitioner Family; Visit Provider Nurse Practitioner Family
DX: F17.200 Nicotine dependence, unspecified, uncomplicated (principal); D72.829 Elevated white blood cell count, unspecified
CPT/HCPCS: 71046

== ENCOUNTER → 2025-01-07 15:37 | Outpatient (BNV) | payer BC, SELFPAY | PROVIDERS: PCP Nurse Practitioner Family; Visit Provider Radiology Diagnostic Radiology | DX: J92.9 Pleural plaque without asbestos (principal); J94.2 Hemothorax | CPT/HCPCS: 71046 ==